=== PATIENT | male | born 1960 | race Caucasian/White ===

== ENCOUNTER → 2017-03-24 | Outpatient (CLI) | payer OTHER ==
[2017-03-24 13:27] LABS: HEMATOCRIT 39.5 % (42-52); MEAN CELL VOLUME 92.9 fL (80-100); MEAN CORPUSCULAR HEMOGLOBIN 30.8 pg (25-34); MEAN CORPUSCULAR HGB CONC 33.2 g/dl (32-36); MEAN PLATELET VOLUME 10.8 fL (7.4-10.4); PLATELET COUNT 198 K/uL (130-400); RED BLOOD COUNT 4.25 M/uL (4.7-6.1); WHITE BLOOD COUNT 6.74 K/uL (4.8-10.8)
[2017-03-24 13:33] LABS: BLOOD UREA NITROGEN 17 mg/dl (7-18); BUN/CREATININE RATIO 17.2 (10-20); CALCIUM 9.3 mg/dl (8.5-10.1); CARBON DIOXIDE 32 mmol/L (21-32); CHLORIDE 106 mmol/L (98-107); CREATININE 0.99 mg/dl (0.60-1.40); GLUCOSE 108 mg/dl (70-99); POTASSIUM 3.6 mmol/L (3.5-5.1); SODIUM 141 mmol/L (136-145)
[2017-03-24 13:41] LABS: ESTIMATED AVERAGE GLUCOSE 114 mg/dl; HA1C FLAG Normal (Normal)
== END | disposition home or self-care (01) ==
LOC: C.LABMFLN 07:06
PROVIDERS: ATTEND Family Medicine
DX: E11.41 Type 2 diabetes mellitus with diabetic mononeuropathy (principal)

== ENCOUNTER → 2017-12-07 | Outpatient (CLI) | payer OTHER ==
[2017-12-07 14:36] LABS: BLOOD UREA NITROGEN 12 mg/dl (7-18); CALCIUM 9.3 mg/dl (8.5-10.1); CARBON DIOXIDE 28 mmol/L (21-32); CREATININE 1.17 mg/dl (0.60-1.40); GLUCOSE 108 mg/dl (70-99); SODIUM 139 mmol/L (136-145)
[2017-12-08 06:51] LABS: HEMOGLOBIN A1C 5.7 % (4.5-5.6)
== END | disposition home or self-care (01) ==
LOC: C.LABMFLN 07:24
PROVIDERS: ATTEND Family Medicine
DX: I10 Essential (primary) hypertension (principal)

== ENCOUNTER 2021-01-06 06:05 | Observation (INO) ==
--- NOTE | 2020-12-25 11:01 | PAT Medication Instructions ---
Medication Instructions Date of Service December 25, 2020 Home Medications Medication Instructions Recorded fluticasone propionate 50 See Rx Instructions .ROUTE 06/30/20 mcg/actuation nasal .COMPLEX #16 milliliter spray,suspension cyclobenzaprine 10 mg tablet 10 mg PO BID #60 tab 12/12/20 fluticasone propionate 110 2 puff INH BID #12 g 12/12/20 mcg/actuation HFA aerosol inhaler fluticasone propionate 50 mcg/actuation nasal spray,suspension See Rx Instructions .ROUTE .COMPLEX cyclobenzaprine 10 mg tablet 10 mg PO BID fluticasone propionate 110 mcg/actuation HFA aerosol inhaler 2 puff INH BID acetaminophen [Tylenol] 1,000 mg PO QID albuterol sulfate [Ventolin HFA] See Rx Instructions .ROUTE .COMPLEX PRN carbamazepine 300 mg PO BID cetirizine 10 mg PO DAILY PRN losartan 25 mg PO QAM potassium chloride [Klor-Con M10] 10 meq PO QAM DO NOT take the morning of surgery cyclobenzaprine 10 mg tablet 10 mg PO BID cetirizine 10 mg PO DAILY PRN losartan 25 mg PO QAM potassium chloride [Klor-Con M10] 10 meq PO QAM Take morning of surgery With a small sip of water, OTHERWISE NOTHING TO EAT OR DRINK AFTER MIDNIGHT: fluticasone propionate 50 mcg/actuation nasal spray,suspension See Rx Instructions .ROUTE .COMPLEX fluticasone propionate 110 mcg/actuation HFA aerosol inhaler 2 puff INH BID acetaminophen [Tylenol] 1,000 mg PO QID (okay to take up to 4 hours prior to surgery if needed) albuterol sulfate [Ventolin HFA] See Rx Instructions .ROUTE .COMPLEX PRN (use if needed; please bring rescue inhaler with you to hospital day of surgery if possible) carbamazepine 300 mg PO BID Take evening before surgery cyclobenzaprine 10 mg tablet 10 mg PO BID fluticasone propionate 110 mcg/actuation HFA aerosol inhaler 2 puff INH BID acetaminophen [Tylenol] 1,000 mg PO QID albuterol sulfate [Ventolin HFA] See Rx Instructions .ROUTE .COMPLEX PRN (if needed) carbamazepine 300 mg PO BID cetirizine 10 mg PO DAILY PRN (if needed) Other Notes If you have any questions please call us at [phone] or [phone] or [phone] or [phone]
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
--- NOTE | 2020-12-26 15:09 | XRay Report ---
XR chest Pre-admission PA/Lat HISTORY: 60 years-old Male pat chronic back pain COMPARISON: None TECHNIQUE: PA and lateral views of the chest FINDINGS: Cardiomediastinal and hilar silhouettes are within normal limits. No pneumothorax, pleural effusion, airspace consolidation or overt pulmonary edema. Bones of the chest appear grossly intact. IMPRESSION: No acute process. ACT 112: Negative or not required by law. The above report was generated using voice recognition software. It may contain grammatical, syntax o r spelling errors. Electronically signed by: Destin Boyle M.D. 12/26/2020 3:08 PM
[2020-12-26 15:33] LABS: Partial Thromboplastin Ratio 1.1; Partial Thromboplastin Time 28.1 Seconds (21.0-31.0); Prothrombin Time 9.7 Seconds (9.0-12.0)
[2020-12-26 15:41] LABS: Appearance Urine Clear (Clear); Bacteria Urine Automated Negative (Negative); Bilirubin Urine Negative (Negative); Blood Urine 1+ (Negative); Cast Urine Automated 0 /lpf (0-5); Color Urine Yellow; Epithelial Cell Urine Auto 0-5 /lpf (0-5); Glucose Urine UA Negative (Negative); Ketones Urine Negative (Negative); Leukocyte Esterase Urine Negative (Negative); Nitrite Urine Negative (Negative); Protein Urine Negative (Negative); RBC Urine Automated 0-4 /hpf (0-4); Specific Gravity Urine 1.025 (1.000-1.030); Urobilinogen Urine Negative (Negative)
--- NOTE | 2020-12-26 15:43 | Electrocardiogram Report ---
Test Reason : Blood Pressure : / mmHG Vent. Rate : 073 BPM Atrial Rate : 073 BPM P-R Int : 170 ms QRS Dur : 092 ms QT Int : 394 ms P-R-T Axes : 055 057 054 degrees QTc Int : 434 ms Normal sinus rhythm Normal ECG No previous ECGs available Confirmed by Oracio Wright ([id number]) on 12/26/2020 3:43:17 PM Referred By: Christo Chicas Confirmed By:Oracio Wright
[~2021-01-06 06:05] MED LIST: ACETAMINOPHEN 500 MG TAB PO SCH; CeleBREX 200 MG CAP PO SCH; GABAPENTIN 600 MG DOSE PO SCH; LR 15ML/HR IV SCH; ceFAZolin 2000MG 2,000 MG/15 ML SYR IV SCH
[2021-01-06] MEDS ORDERED: ROCURONIUM BROMIDE 10 MG/ML 5 ML VIAL IV ONE (07:15)
[2021-01-06] MEDS ORDERED: PHENYLEPHRINE 100MCG/ML 5ML SYR ONE (07:15)
[2021-01-06] MEDS ORDERED: NEOSTIGMINE METHYLSULFATE 1 MG/ML 10ML VIAL ONE (07:15)
[2021-01-06] MEDS ORDERED: GLYCOPYRROLATE 0.2 MG/ML VIAL ONE (07:15)
[2021-01-06] MEDS ORDERED: DEXAMETHASONE SOD INJ 4 MG/ML VIAL ONE (07:15)
[2021-01-06] MEDS ORDERED: ePHEDrine sulfate 50 MG/ML SYR ONE (07:15)
[2021-01-06] MEDS ORDERED: SUCCINYLCHOLINE CHLORIDE 20 MG/ML 10 ML VIAL IV ONE (07:15)
[2021-01-06] MEDS ORDERED: MIDAZOLAM HCL 1 MG/ML 2ML VIAL ONE (07:15)
[2021-01-06] MEDS ORDERED: PROPOFOL IV EMULSION 10 MG/ML 20 ML VIAL IV ONE (07:15)
[2021-01-06] MEDS ORDERED: ONDANSETRON INJ 2 MG/ML 2 ML VIAL ONE (07:15)
[2021-01-06] MEDS ORDERED: fentaNYL citrate 100 MCG/2 ML VIAL ONE ×2 (07:16)
[2021-01-06] MEDS ORDERED: HYDROmorphone INJ 2 MG/ML SYR/VIAL IV PRN (07:29)
[2021-01-06] MEDS ORDERED: PROMETHAZINE HCL 12.5 MG in SODIUM CHLORIDE 0.9% 50 ML IV PRN ×2 (07:29→10:38)
[2021-01-06] MEDS ORDERED: ATROPINE SULFATE 0.1 MG/ML 10ML SYR IV PRN (07:29)
[2021-01-06] MEDS ORDERED: ePHEDrine sulfate 50 MG/ML AMP IV PRN (07:29)
[2021-01-06] MEDS ORDERED: ONDANSETRON INJ 2 MG/ML 2 ML VIAL IV PRN ×2 (07:29→10:38)
--- NOTE | 2021-01-06 07:33 | History & Physical Bridge Note ---
Date of Service January 06, 2021 History & Physical Bridge Note I have examined the patient, reviewed the History & Physical and in the interval since the performance of the History & Physical I have noted the following changes of clinical significance: no changes noted
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
[2021-01-06] MEDS ORDERED: ceFAZolin 330 MG/ML 1 GM VIAL ONE (07:50)
[2021-01-06] MEDS ORDERED: HYDROmorphone INJ 2 MG/ML SYR/VIAL ONE (08:08)
[2021-01-06] MEDS ORDERED: PROPOFOL IV EMULSION 10 MG/ML 100 ML VIAL IV ONE (08:16)
[2021-01-06] MEDS ORDERED: FLOSEAL HEMOSTATIC MATRIX 10ML TOP ONE (08:28)
--- NOTE | 2021-01-06 09:00 | Operative Report ---
Post Operative Report Pre & Post Diagnosis Operation Date: 01/06/21 07:45 Pre-Op Diagnosis: Spinal Stenosis, Cervical Region Post-Op Diagnosis: Spinal Stenosis, Cervical Region I identified the patient and participated in the time-out.: Yes Procedure Operation Date: 01/06/21 07:45 Actual Procedures #1 anterior cervical discectomy with bilateral foraminotomies C6-C7. #2 intracervical arthrodesis C6-C7. #3 placement of 8 mm spiral cage filled with I factor at C6-C7. #4 application of de anda plate and screws across C6-C7. Surgeon Christo Chicas, Chief Of Production Frida Smith Estimated Blood Loss 10 Findings See Below The patient is 5 foot 11 inches tall weighing over 101 kg with a BMI in excess of 31. The patient's body habitus did contribute to significant technical difficulty requiring her deeper retractors and longer instruments. This had at least 25% increase to the operative time. Specimens None Indications This is a 60-year-old male who presents with above-mentioned diagnosis after failing extensive course of nonoperative care is here for the above-mentioned procedure. Description of Procedure Patient was met with identified informed consent obtained. Patient was then taken to the operative suite underwent ablation placed in supine position Wicho table with head Tim head start director. All bony prominences well-padded eyes inspected to ensure no external pressure placed upon the. This point the anterior cervical spine was prepped and draped in a sterile fashion. The assistance of fluoroscopy identified the C6-C7 disc base and a transverse incision was placed along the right anterior aspect of the cervical spine overlying this region. Sharp dissection with the assistance of bipolar electrocautery was performed down to and exposing the anterior cervical spine at C6-C7. Self-retaining retractors placed. I then performed a complete discectomy of C6-C7 out to the uncovertebral's bilaterally. [place] distracting pins were utilized to assist in visualization. Removed all posterior annular fibers longitudinal ligament bilateral foraminotomies performed to address all neural compression. The endplates were then burred to subcortical bleeding bone and 8 mm spiral cage filled with I factor tapped in position. Distracting apparatus was removed and a 5 complete and screws applied with the assistance of fluoroscopy. The incision was then copiously irrigated explored to ensure no damage to surrounding structures remaining bleeding. 10 round MAGDALENO drain inserted. The incision was then closed with 2 Vicryl in the fascia and a 4 Monocryl for final skin closure. Steri-Strip sterile dressings placed. Patient waken taken to PACU stable condition. Please note spinal cord monitoring was last that the procedure no changes noted. Lastly Frida Smith was present at the entire surgery involved the patient positioning complex portions of the surgery and final skin closure. I attest to the content of the Intraoperative Record and any orders documented therein. Any exceptions are noted below.
--- NOTE | 2021-01-06 09:39 | Fluoroscopy Report ---
FL cervical 2-3V CLINICAL HISTORY: ACDF C6-C7 COMPARISON STUDY: None. FLUOROSCOPY TIME: 18 seconds. FLUOROSCOPIC IMAGES: 3 FINDINGS: The hardware is obscured by overlying soft tissues on the initial crosstable lateral fluoro scopic image. A anterior discectomy and fusion is noted on the second 2 images. Exact localization is difficult given partial visualization of the spine on these 2 images however, this likely reflects a C6-C7 anterior discectomy and fusion. Surgical drain is in place. Endotracheal tube is incidentally noted. IMPRESSION: Fluoroscopy provided during anterior cervical discectomy and fusion, as described above. ACT 112: Negative or not required by law. Electronically signed by: Jian Ruffin M.D. 01/06/2021 9:37 AM
[2021-01-06] MEDS: fentaNYL citrate 100 MCG/2 ML VIAL IV PRN ×2 (09:47→09:52)
[2021-01-06] MEDS ORDERED: SOD PHOSPHATE/SOD BIPHOSPHATE ENEMA 132 ML BTL PR PRN (10:38)
[2021-01-06] MEDS ORDERED: traMADol HCL 50 MG TABLET PO PRN (10:38)
[2021-01-06] MEDS ORDERED: diphenhydrAMINE Capsule 25 MG CAP PO PRN (10:38)
[2021-01-06] MEDS ORDERED: LORazepam 0.5 MG TAB PO PRN (10:38)
[2021-01-06] MEDS ORDERED: DO NOT ADMINISTER FLU VACCINE PRN (10:38)
[2021-01-06] MEDS ORDERED: CETIRIZINE HCL 10 MG TABLET PO PRN (10:38)
[2021-01-06] MEDS ORDERED: HYDROmorphone INJ 1 MG/ML SYRINGE IV PRN (10:38)
[2021-01-06] MEDS ORDERED: ACETAMINOPHEN 1,000 MG/100 ML VIAL IV PRN (10:38)
[2021-01-06] MEDS ORDERED: DO NOT ADMINISTER PNEUMOCOCCAL VACCINE PRN (10:38)
[2021-01-06] MEDS ORDERED: FAMOTIDINE 20 MG TAB PO PRN (10:38)
[2021-01-06] MEDS ORDERED: NALOXONE HCL 0.4 MG/1 ML VIAL/CARP IV PRN (10:38)
[2021-01-06] MEDS ORDERED: dexAMETHasone 8 MG in SYRINGE 0 ML IV PRN (10:38)
[2021-01-06] MEDS ORDERED: ACETAMINOPHEN 500 MG TAB PO PRN (10:38)
[2021-01-06] MEDS ORDERED: MAGNESIUM HYDROXIDE SUSP 30 ML UDC PO PRN (10:38)
[2021-01-06] MEDS ORDERED: LORazepam 0.5 MG/1 ML VIAL IV PRN (10:38)
[2021-01-06] MEDS ORDERED: hydrOXYzine HCl 25 MG TAB PO PRN (10:38)
[2021-01-06] MEDS ORDERED: ALUMINUM/MAGNESIUM SUSP 30 ML UDC PO PRN (10:38)
[2021-01-06] MEDS ORDERED: RACEPINEPHRINE 2.25% NEBU SOLN 0.5 ML VIAL INH PRN (10:38)
[2021-01-06] MEDS ORDERED: METOCLOPRAMIDE HCL INJ 5 MG/ML 2 ML VIAL IV PRN (10:38)
[2021-01-06] MEDS ORDERED: ALBUTEROL HFA 8 GM INHALER INH PRN (10:38)
[2021-01-06] MEDS ORDERED: ONDANSETRON 4 MG OD TAB PO PRN (10:38)
[2021-01-06] MEDS ORDERED: HYDROmorphone INJ 0.5 MG/0.5 ML SYR IV PRN (10:38)
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
--- NOTE | 2021-01-06 11:43 | Anesthesiology Progress Note ---
Date of Service January 06, 2021 Anesthesia Post Procedure Vital Signs Vital Signs: Temp Pulse Pulse Resp BP Pulse Ox Pulse Ox 01/06/21 11:00 36.3 C L 59 L 16 127/79 100 01/06/21 10:57 98 01/06/21 10:38 48 L 20 99 01/06/21 10:15 36.7 C 53 L 16 112/79 96 01/06/21 10:05 36.7 C 49 L 16 122/79 96 01/06/21 09:55 57 L 15 122/81 97 01/06/21 09:45 55 L 18 128/81 97 01/06/21 09:35 58 L 17 111/83 98 01/06/21 09:25 60 13 113/78 98 01/06/21 09:15 70 13 123/74 97 01/06/21 09:07 36.5 C 73 14 118/90 96 01/06/21 06:33 36.8 C 80 16 143/83 H 99 Pain Intensity Left Shoulder: Pain Intensity: 5 Right Neck: Pain Intensity: 4 Transfer of Care Handoff Completed per policy Notes Mental Status: alert / awake / arousable and participated in evaluation Patient Amnestic to Procedure: Yes Nausea / Vomiting: adequately controlled Pain: adequately controlled Airway Patency, RR, SpO2: stable & adequate BP & HR: stable & adequate Hydration State: stable & adequate Anesthetic Complications: no major complications apparent and Pt Satisfied with anesthetic care
[2021-01-06] MEDS: oxyCODONE HCL IR 5 MG TAB (IMMEDIATE RELEASE) PO PRN (12:44)
[2021-01-06] MEDS: LOSARTAN POTASSIUM 25 MG TAB PO SCH (12:47)
[2021-01-06] MEDS: POTASSIUM CHLORIDE 10 MEQ TABCR PO SCH (12:47)
[2021-01-06] MEDS: LACTATED RINGER'S 1,000 ML IV SCH ×2 (12:49→19:35)
[2021-01-06] MEDS: ceFAZolin 2000MG 2,000 MG/15 ML SYR IV SCH ×2 (15:42→23:32)
[2021-01-06] MEDS ORDERED: DOCUSATE SODIUM/SENNA 50/8.6MG TAB PO SCH (21:00)
[2021-01-07] MEDS: LACTATED RINGER'S 1,000 ML IV SCH (01:13)
[2021-01-07] MEDS: oxyCODONE HCL IR 5 MG TAB (IMMEDIATE RELEASE) PO PRN (04:00)
[2021-01-07] MEDS ORDERED: POLYETHYLENE (MIRALAX) 17 GM PACK PO SCH (06:00)
[2021-01-07] MEDS: POTASSIUM CHLORIDE 10 MEQ TABCR PO SCH (08:00)
[2021-01-07] MEDS: LOSARTAN POTASSIUM 25 MG TAB PO SCH (08:00)
--- NOTE | 2021-01-07 08:52 | Hospitalist Progress Note ---
Date of Service January 07, 2021 Assessment & Plan (1) Herniation of cervical intervertebral disc with radiculopathy: POD#1 s/p C6-C7 ACDF with Dr. Chicas on 01/06/21. EBL 10cc. Pre-op h/h 14.5/42.6 PT/OT/pain management/DVT prophylaxis per primary service Repeat h/h (2) Benign essential hypertension: BP stable 128/83 Continued on Losartan 25mg daily Continue to monitor (3) Asthma: asthma and allergic rhinitis, conjunctivitis, Patient has stable asthma for some time typically on Zyrtec 10mg prn -- continued albuterol and fluticasone these will be ordered 97%on RA Hypokalemia --K 3.2 -- ordered 40meq PO. Mag pending at time of d/c but patient adamant about making it to his appointment. Dispo: plans for d/c this am to get his covid vaccine Thank you for allowing hospitalist participate in the care of Mr Abel. Will sign off. Admission and Anticipated Discharge Date Admission Date: January 06, 2021 Supervising Physician Co-Signing Physician Notes Attending Attestation - Chart reviewed in detail, care plan d/w GABE Lemus. I agree w/ the hendrickson components of her documentation. s/p c-spine surgery; being discharged by orthopedic service today. Labs and vitals remain acceptable. The only exception is that of mild hypokalemia - replete. Sancho Tolentino MD Subjective Patient seen this morning. Doing well. Dressed and ready for d/c. Tolerated diet without issue. No trouble swallowing or hoarseness. No fever, chills, chest pain , shortness of breath, abd pain, n/v/d at this time. Review of Systems Review of Systems: All systems reviewed & are unremarkable except as noted in HPI & below Physical Exam Physical Exam: The patient appeared well nourished and normally developed. Sitting up at edge of bed, dressed, without c-collar in place. Dressing c/d/i, no MAGDALENO drain. No stridor or wheezing. well nourished, well developed, NAD Head exam is normocephalic atraumatic Lungs are clear to auscultation, no focal loss of breath sounds Cardiac exam, Rhythm is regular.. No murmurs, rubs or gallops. Abdominal exam reveals normal bowel sounds, soft non tender, no masses Extremities are nonedematous and both pedal pulses are present Neurologic exam is alert and oriented, no focal loss of strength or sensation Psychologically is without concerns for anxiety or depression Results & Data Results & Data ([facility]) Vital Signs (Past 12 Hours) Vital Signs Temp Pulse Resp BP Pulse Ox 01/07/21 07:58 36.5 C 61 18 128/83 97 01/07/21 07:00 68 17 97 01/07/21 05:30 36.8 C 67 19 139/70 95 01/07/21 03:45 55 L 16 95 01/07/21 03:30 36.7 C 56 L 17 128/74 95 01/07/21 01:30 36.8 C 69 20 137/78 98 01/06/21 23:33 36.5 C 51 L 18 116/73 95 01/06/21 22:45 53 L 12 92 01/06/21 21:32 36.7 C 59 L 18 128/90 94 Laboratory Results 01/07/21 01/07/21 Range/Units 08:59 08:59 WBC 16.31 H (4.8-10.8) K/uL RBC 4.45 L (4.7-6.1) M/uL Hgb 14.0 (14.0-18.0) g/dL Hct 41.3 L (42-52) % MCV 92.8 (80-100) fL MCH 31.5 (25-34) pg MCHC 33.9 (32-36) g/dL RDW Std Deviation 44.3 (36.4-46.3) fL RDW Coeff of Umm 12.9 (11.5-14.5) % Plt Count 211 (130-400) K/uL MPV 10.2 (7.4-10.4) fL Sodium 140 (136-145) mmol/L Potassium 3.2 L (3.5-5.1) mmol/L Chloride 104 (98-107) mmol/L Carbon Dioxide 30 (21-32) mmol/L Anion Gap 6.0 (3-11) BUN 10 (7-18) mg/dl Creatinine 1.08 (0.6-1.4) mg/dl Est Cr Clr Drug Dosing 89.5 ml/min Est GFR ( Amer) 86.6 ml/min Est GFR (Non-Af Amer) 74.7 ml/min BUN/Creatinine Ratio 9.4 L (10-20) Glucose 157 H (70-99) mg/dl Calcium 9.4 (8.5-10.1) mg/dl PG Care Time/CCT Total # of Minutes Spent Total Time Spent with Patient: Total time spent is greater than 50% in coordination of care (as documented) at patient's floor/unit and/or counseling patient: Coding Level of Care Code 47234 Subseq Hosp Care Lvl 2 Diagnoses Herniation of cervical intervertebral disc with radiculopathy M50.10 Benign essential hypertension I10 Asthma J45.909
[2021-01-07] MEDS ORDERED: FLUTICASONE FUROATE 200MCG 14 PUFFS/INHALER INH SCH (09:00)
[2021-01-07] MEDS ORDERED: FLUTICASONE PROPIONATE NA SPR 16 GM BTL SCH (09:00)
[2021-01-07 09:24] LABS: Hematocrit (blood only) 41.3 % (42-52); Mean Corpuscular Hemoglobin 31.5 pg (25-34); Mean Corpuscular Hgb Conc 33.9 g/dL (32-36); Mean Corpuscular Volume 92.8 fL (80-100); Mean Platelet Volume 10.2 fL (7.4-10.4); Platelet Count 211 K/uL (130-400); RDW Coefficient of Variation 12.9 % (11.5-14.5); RDW Standard Deviation 44.3 fL (36.4-46.3); Red Blood Count 4.45 M/uL (4.7-6.1); White Blood Count 16.31 K/uL (4.8-10.8)
[2021-01-07 09:58] LABS: BUN Creatinine Ratio 9.4 (10-20); Calcium 9.4 mg/dl (8.5-10.1); Creatinine Clr Calc Pharmacy 89.5 ml/min; Est GFR (African American) 86.6 ml/min; Est GFR (Non-African American) 74.7 ml/min; Potassium 3.2 mmol/L (3.5-5.1)
[2021-01-07] MEDS ORDERED: POTASSIUM CHLORIDE CRTAB 20 MEQ TABCR PO STA (09:59)
--- NOTE | 2021-01-07 10:29 | Discharge Summary ---
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 Principal Diagnosis Cervical radiculopathy Discharge Data Allergies Allergy/AdvReac Type Severity Reaction Status Date / Time duloxetine [From Cymbalta] Allergy Intermediate Rash Verified 01/06/21 06:22 pravastatin Allergy Intermediate Joint Pain Verified 01/06/21 06:22 Consultations 01/06/21 10:38 Consult Hospitalist Routine Procedures Performed Operation Date: 01/06/21 07:45 Actual Procedures p C6-C7 Anterior Cervical Discectomy Fusion; Spinal Cord Monitoring(Not Applicable) - Christo Chicas DO Ordered Studies 01/06/21 07:45 FL cervical 2-3V Routine Hospital Course (1) Herniation of cervical intervertebral disc with radiculopathy: Patient went anterior cervical discectomy fusion tolerated so was taken to orthopedic for postop labor postop day 1 arm symptoms markedly improved. Excellent strength testing. MAGDALENO drain decreasing probably. Subsequent discharge home. Discharge orders instructions from the chart for further review. Total Time Total Time Spent Total Time Spent (In Minutes): 20 minutes Discharge Plan Discharge Items Patient Disposition: Home - Self-Care Reason For Visit: Spinal Stenosis, Cervical Region Discharge Diagnosis: Cervical spinal stenosis with radiculopathy Activity: As commented below Non-emergency contact: Primary Care Provider Call non-emergency contact if: you have any medication questions Follow-up/Referrals: Steven Zabala MD [Primary Care Provider] - Diet: Regular Addtl Attending Provider Instructions: ACTIVITY RECOMMENDATIONS: SELF CARE INSTRUCTIONS AFTER CERVICAL FUSIONS 1. No smoking. Smoking drastically decreases the chance of a solid fusion. 2. No bending, lifting more than 5 pounds, or twisting (roll like a log when turning in bed). 3. You may shower 3 days after surgery. Thoroughly dry wound. Do not soak in the tub. 4. Cervical collar: Must be worn at all times including sleeping. You may remove the brace only to bath, eat and if you are sitting in a recliner. 5. Please walk as much as you can for exercise. Gradually increase the distance that you walk as your endurance increases. SPECIAL CARE INSTRUCTIONS: VERY IMPORTANT TO READ AND REVIEW A. Do not take any anti-inflammatory medications (i.e. Indocin, Advil, Aspirin, Naprosyn, Aleve, Motrin, etc.) as these may inhibit the chance of a solid fusion. Tylenol is okay to take. B. Your surgical incision has been closed with a cosmetic suture under the skin that will dissolve in about 6 weeks. In 14 days, you can use a pair of clean scissors and cut the suture that is left outside of the skin at the ends of your incision. C. Complications are uncommon, but please contact us if you have any signs or symptoms of: 1. wound infection (fever higher than 102.5 degrees F, redness, separation of wound, drainage, or increasing pain from the incision) 2. blood clots in legs (pain, swelling, redness and warmth in legs) 3. urinary tract infection (fever higher than 102.5 degrees, burning upon urination or increased frequency of urination) 4. nerve problems (inability to walk on your toes or heels, numbness, loss of bowel or bladder control) 5. any other symptoms that concern you. D. Please call the office at if you have any concerns or questions about your operation or recovery. MANAGING PAIN AFTER SPINAL SURGERY 1. Narcotic medication is intended for short-term use and will be provided for surgical pain. Surgical pain usually lasts for a period of 4-6 weeks. Narcotic medication includes Percocet, Vicodin, Darvocet, Tylenol #3 or Lortab. 2. Longer-term pain is more appropriately treated with non-narcotic medication such as Tylenol ES. 3. Muscle spasm is not appropriately treated with narcotics. Muscle relaxers such as Soma, Flexeril or Skelaxin can be used along with Tylenol ES. 4. Remember that we all live with some "aches and pains". This is not unusual or uncommon after an injury or as we get older. 5. We will provide appropriate medication within the normal guidelines of their prescribed use. We will also be very cautious and aware of potential abuse and extended duration of patients' medication needs. 6. Please allow 2-3 days to process refills. Prescriptions will not be mailed but must be picked up at the office. FOLLOW UP VISIT: Keep your scheduled follow-up appointment. Any questions, please call the office at . Pending Studies at Discharge: No Stand-Alone Forms: [facility], Smoking Cessation Medications and DC Order Prescriptions: New oxycodone 5 mg tablet 5 mg PO Q6H PRN (Reason: pain, severe) Qty: 20 RF: 0 tramadol 50 mg tablet 50 mg PO Q6H PRN (Reason: pain, moderate) Qty: 20 RF: 0 Continued fluticasone propionate 50 mcg/actuation spray,suspension See Rx Instructions .ROUTE .COMPLEX Qty: 16 RF: 8 Flovent HFA 110 mcg/actuation HFA aerosol inhaler 2 puff INH BID Qty: 12 RF: 2 hydrocodone-acetaminophen 5-300 mg tablet 1 tab PO BID PRN (Reason: Pain) RF: 0 acetaminophen [Tylenol] 325 mg Tablet 1,000 mg PO QID RF: 0 cetirizine 10 mg tablet 10 mg PO DAILY PRN (Reason: Allergy Symptoms) RF: 0 losartan 25 mg tablet 25 mg PO QAM RF: 0 albuterol sulfate [Ventolin HFA] 90 mcg/actuation HFA aerosol inhaler See Rx Instructions .ROUTE .COMPLEX PRN (Reason: Wheezing) RF: 0 potassium chloride [Klor-Con M10] 10 mEq tablet,ER particles/crystals 10 meq PO QAM RF: 0 carbamazepine 300 mg capsule, ER multiphase 12 hr 300 mg PO BID RF: 0 Discharge Orders: Discharge Order (Routine); Ordered 01/07/21 Ordered By: Christo Chicas Admission Data Admit Date/Time: 01/06/21 09:13 Attending Provider: Christo Chicas Admit Provider: Christo Chicas Primary Care Provider: Steven Zabala Other Providers: Noreen Dietrich
[2021-01-08] MEDS ORDERED: bisacodyL 10 MG SUPP PR PRN (09:01)
== END 2021-01-07 11:28 | disposition home or self-care (01) ==
LOC: ASU 06:05 → 3E 09:13 → INTOOBSV 09:13